=== PATIENT | male | born 1990 | race Caucasian/White ===

== ENCOUNTER 2024-03-01 18:37 | Emergency (ER) | payer BC, SELFPAY ==
[2024-03-01 18:45] VITALS: PULSE 83; RESP 16; TEMP 36.4; O2SAT 98
[2024-03-01] MEDS: Lidocaine/Epinephri/Tetracaine Topical Gel 3 ML (19:00)
--- NOTE | 2024-03-01 19:08 | ED.GENADUL_ITS ---
Discharge Plan Disposition Patient Disposition: Home Condition: Good Discharge Details Clinical Impression: Laceration of scalp Primary Care Provider: Ghanshyam Perez ED Provider: Rhett Mendoza Home Meds and New Rx's Prescriptions: No Action No Known Home Meds Discharge Instructions Instructions: Stitches and jayme Additional Instructions: Please keep the area clean and dry. Please keep the area dry for the next 48 hours. Monitor closely for any redness, drainage or discharge. Absorbable sutures will come out on their own in 10 to 12 days. If they have not you can gently rub warm soapy water on the area to help them come off. If you come back to the emergency department here it will be free of charge for the suture removal. For long-term scar cosmesis, please make sure to avoid any sun to the area for the next year. Apply moisturizer or vitamin E to the area twice daily for the next 12 months for the best chance of wound/scar medication. Please take a daily multivitamin as well as this can help in wound healing. Referrals: Ghanshyam Perez MD [Primary Care Provider] - [facility] General Date/Time Provider Initiated Documentation: 03/01/24 18:54 . HPI Narrative: This is a pleasant 34-year-old male with no significant past medical history as tetanus was updated for the last 10 years who presents for laceration on scalp. Patient states that he was stacking wood when a large piece of wood fell and hit his head. Has a small laceration and bleeding. He came to the ER for further assessment. Aside from mild achiness where the wood hit he denies any problems otherwise. He denies any headache, vision changes, loss of consciousness or syncope. He denies any ear pain. No other trauma. No other complaints at this time. No other modifying factors. Related Data Home Medications Medication Instructions Recorded Confirmed Unknown [No Known Home Meds] 09/19/21 03/01/24 Allergies Allergy/AdvReac Type Severity Reaction Status Date / Time No Known Allergies Allergy Verified 09/24/22 10:25 General Stated Complaint: Laceration CARRINGTON: 4 Exam Narrative Exam Narrative: 1.Const: Well-nourished, Well-developed, appearing stated age 2.Eyes: PERRL, no conjunctival injection, and symmetrical lids. 3.ENT: Atraumatic external nose and ears. Moist MM. Neck: Symmetric, trachea midline, No thyromegaly. There is no evidence of raccoon eyes, figueroa sign, CSF rhinorrhea, mastoid tenderness, cranial crepitus, hemotympanum, exophthalmos, or hyphema. Patient demonstrates intact dentition with no signs of tooth avulsion or fracture, no signs of jaw deformity, no evidence of a LeFort's fracture, with an intact palate, nose and orbital region. There is no evidence of a nasal septal hematoma. No proptosis. Jaw closes symmetrically. Airway is clear. There is evidence of a small 2 cm laceration on the scalp. No active bleeding. No involvement in the subcutaneous structures or skull. Minimal hematoma in that area, no softness or bogginess to suggest skull fracture. No other evidence of trauma. 4.CVS: +S1/S2, No murmurs or gallops. Peripheral pulses 2+ and equal in all extremities. Brisk capillary refill in all extremities. 5.RESP: Unlabored respiratory effort. Clear to auscultation bilaterally. No wheezes rales or rhonchi 6.GI: Soft, Nontender/Nondistended, No hepatosplenomegaly. No guarding or antonio ound. 7.MSK: Normocephalic/Atraumatic, Extremities w/o deformity or ttp No cyanosis or clubbing, Normal movement of all extremities 8.Skin: Warm, Dry. No rashes or lesions. 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 Sensation grossly intact, no focal neurologic deficits. 10.Psych: (AAO) x3. Appropriate mood and affect Course Vital Signs Vital signs: Vital Signs Temperature 36.4 C L 03/01/24 18:45 Pulse 83 03/01/24 18:45 Respiratory Rate 16 03/01/24 18:45 Pulse Oximetry 98 03/01/24 18:45 Temperature 36.4 C L 03/01/24 18:45 Pulse 83 03/01/24 18:45 Respiratory Rate 16 03/01/24 18:45 Pulse Oximetry 98 03/01/24 18:45 Pain Level 1 03/01/24 18:45 Procedures Laceration Laceration 1: Site: scalp Side (If applicable): left Size (cm): 2 Description: linear Depth: simple, single layer Local anesthetic: Lidocaine 1% and with Epi Amount of anesthesia used (mL): 2 Pre-repair: wound explored, irrigated extensively and deep structures intact Skin layer closed with: other (Chromic Gut) Size (cm): 5-0 Number of sutures: 3 Technique: simple, interrupted Medical Decision Making This is a pleasant 34-year-old male with no significant past medical history as tetanus was updated for the last 10 years who presents for laceration on scalp. Patient states that he was stacking wood when a large piece of wood fell and hit his head. Has a small laceration and bleeding. He came to the ER for further assessment. Aside from mild achiness where the wood hit he denies any problems otherwise. He denies any headache, vision changes, loss of consciousness or syncope. He denies any ear pain. No other trauma. No other complaints at this time. No other modifying factors. Patient demonstrates a small 2 cm laceration to the scalp with what hit, small hematoma but no evidence of bony deformity to suggest skull fracture whatsoever. No deep involvement of the galea or skull. Patient appears clinically well otherwise. No other evidence of significant trauma or neurologic deficit to suggest acute intracranial etiology. The area was cleaned, anesthetized, washed out with chlorhexidine, and then sutured with 3 simple interrupted sutures using 5-0 Chromic Gut. Patient tolerated this well. Patient did specifically request absorbable sutures so that he would not have to immediately come back. No other evidence of foreign body or other abnormality at this time. Patient will be discharged home. Discussed red flags which return. I have extensively reviewed the treatment plan and discharge instructions with the patient. I have addressed all patient concerns at this time. The patient was made aware of what symptoms to monitor for that would warrant a return to the emergency department. Discussed the plan with the patient, they demonstrate verbal understanding and agreement with our assessment and plan at this time. The documentation in this chart was dictated using [employer] dictation software. Please excuse any dictation errors. Quality:SDOH Health Related Social Needs: No Data to Display PFSH All Active Problems Laceration of scalp (Acute) Callus of foot (Acute) Erectile dysfunction (Acute) Family History Mother No problems noted. Father No problems noted. 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 Pets and animals: Yes Pets and animals: dog(s) Sexually active: Yes Do you think of yourself as: straight/heterosexual Current gender identity: male What is your relationship status?: living with partner How often do you talk on the phone with friends or family?: three or more times per week How often do you get together with friends or relatives?: once per week How often do you attend yarsani or worship services?: decline to answer Do you belong to any clubs or organized social groups?: yes Panel score (0-1 are the most socially isolated patients): 3 What type of physical activity do you participate in: walking and running Duration: 45-60 minutes/day Frequency: daily Bela/Protestant: None Special bela needs: No Seatbelt use: always Helmet use: Yes Helmet use: always Drive intox or ride w/intox local bulk driver: No
== END 2024-03-01 19:14 | disposition home or self-care (01) ==
LOC: ER 19:18
PROVIDERS: Emergency Provider Student in an Organized Health Care Education/Training Program; PCP Family Medicine
DX: S01.01XA Laceration without foreign body of scalp, initial encounter (principal); W20.8XXA Other cause of strike by thrown, projected or falling object, initial encounter; Y93.89 Activity, other specified; Y92.017 Garden or yard in single-family (private) house as the place of occurrence of the external cause
CPT/HCPCS: 12001; 99283

== ENCOUNTER 2025-07-24 21:31 | Emergency (ER) | payer BC, SELFPAY ==
[2025-07-24 21:40] VITALS: BP 138/93; PULSE 83; RESP 12; TEMP 36.7; O2SAT 97
[2025-07-24] MEDS: Lidocaine 1% Multi-Dose W/EPI 1/100,000 50 ML VIAL (22:19)
--- NOTE | 2025-07-24 22:19 | ED.GENADUL_ITS ---
Discharge Plan Disposition Patient Disposition: Home Condition: Good Discharge Details Clinical Impression: Laceration of hand, right Primary Care Provider: Ghanshyam Perez ED Provider: Rhett Mendoza Home Meds and New Rx's Prescriptions: No Action No Known Home Meds Discharge Instructions Instructions: Laceration Repair With Stitches ED Additional Instructions: Please keep the area clean and dry. Monitor closely for any redness, drainage or discharge. For nonabsorbable sutures, please return in 7 to 10 days to have the wound reassessed and the sutures removed. If you come back to the emergency department here it will be free of charge for the suture removal. For long-term scar cosmesis, please make sure to avoid any sun to the area for the next year. Apply moisturizer or vitamin E to the area twice daily for the next 12 months for the best chance of wound/scar medication. Please take a daily multivitamin as well as this can help in wound healing. If you notice any worsening of your symptoms, or any new symptoms such as vomiting, diarrhea, fever, chills, shortness of breath, chest pain, numbness, weakness, or fainting , please return immediately to the emergency department for reevaluation. Please follow up with your primary care provider as soon as possible for reassessment and reevaluation. As always, it was a pleasure participating in your medical care today. Stand Alone Forms: Portal Information Referrals: Ghanshyam Perez MD [Primary Care Provider, Medicine] [facility] General Date/Time Provider Initiated Documentation: 07/24/25 21:44 . HPI Narrative: This is a pleasant 35-year-old male with no significant past medical history who states that his tetanus is updated last year, presents today for laceration of his right dominant hand over the thenar eminence. Patient was working and his hand slipped and caught a sharp piece of wood, and sliced the right lateral aspect near his thenar eminence. He had bleeding, he covered it and came into the ER for further assessment. He denies any new numbness or tingling or weakness. There were no splinters that he had to remove. No other complaints at this time. No other modifying factors. Related Data Home Medications ?Medication ?Instructions ?Recorded ?Confirmed Unknown [No Known Home Meds] 09/19/21 1 09/24/24 Allergies Allergy/AdvReac Type Severity Reaction Status Date / Time No Known Allergies Allergy Verified 07/24/25 21:44 General Stated Complaint: Laceration CARRINGTON: 4 Exam Narrative Exam Narrative: 1.Const: Well-nourished, Well-developed, appearing stated age 2.Eyes: PERRL, no conjunctival injection, and symmetrical lids. 3.ENT: Atraumatic external nose and ears. Moist MM. Neck: Symmetric, trachea midline, No thyromegaly. 4.CVS: +S1/S2, Peripheral pulses 2+ and equal in all extremities. Brisk capillary refill in all extremities. 5.RESP: Unlabored respiratory effort. Clear to auscultation bilaterally. No wheezes rales or rhonchi 6.GI: Soft, Nontender/Nondistended, No hepatosplenomegaly. No guarding or rebound. 7.MSK: Right hand demonstrates symmetrically palpable radial and ulnar pulses. Capillary refill less than 2 seconds to all digits. Intact sensation to light touch of the radial, median and ulnar nerves demonstrated by testing in the dorsal web space of the thumb, the distal palmar aspect of the index finger, and the lateral surface of the fifth finger. 2 point discrimination intact to 5mm of discrimination in the affected digit. Intact motor function of the radial, median and ulnar nerves demonstrated by strength of extension of the isolated distal joint of the index finger, hand leading firefighter, and spreading of the 2nd through 5th digits. Intact recurrent median nerve as demonstrated by ability to move thumb fully through opposition, abduction and flexion. No snuffbox tenderness. 8.Skin: 2 cm V shaped laceration present over the lateral aspect of the thenar eminence, no active bleeding. No evidence of deep tissue involvement. No evidence of tendon damage. 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 Sensation grossly intact, no focal neurologic deficits. 10.Psych: (AAO) x3. Appropriate mood and affect Course Vital Signs Vital signs: Vital Signs Temperature 36.7 C 07/24/25 21:40 Pulse 83 07/24/25 21:40 Respiratory Rate 12 07/24/25 21:40 Blood Pressure 138/93 H 07/24/25 21:40 Pulse Oximetry 97 07/24/25 21:40 Temperature 36.7 C 07/24/25 21:40 Temperature Source Oral 07/24/25 21:40 Pulse 83 07/24/25 21:40 Respiratory Rate 12 07/24/25 21:40 Blood Pressure 138/93 H 07/24/25 21:40 Pulse Oximetry 97 07/24/25 21:40 Pain Level 0 07/24/25 21:40 Procedure Laceration Laceration 1: Date of Procedure: 07/24/25 Time of procedure: 22:24 Provider that performed the procedure: Rhett Mendoza Standard Time Out Performed: No Patient Consented: Verbally Site: hand Side (If applicable): right Description: linear Depth: simple, single layer Local anesthetic: Lidocaine 1% and with Epi Amount of anesthesia used (mL): 4 Pre-repair:: wound explored, irrigated extensively and deep structures intact Skin layer closed with: nylon Suture size: 4-0 Number of sutures:: 3 Technique: simple, interrupted Medical Decision Making This is a pleasant 35-year-old male with no significant past medical history who states that his tetanus is updated last year, presents today for laceration of his right dominant hand over the thenar eminence. Patient was working and his hand slipped and caught a sharp piece of wood, and sliced the right lateral aspect near his thenar eminence. He had bleeding, he covered it and came into the ER for further assessment. He denies any new numbness or tingling or weakness. There were no splinters that he had to remove. No other complaints at this time. No other modifying factors. Exam demonstrates a 2 cm V-shaped laceration over the thenar eminence on the right hand, no tendon involvement, no neurovascular deficits. Patient was anesthetized, sutured with 3 simple interrupted 4-0 Ethilon sutures. He tolerated this well. Discussed red flags for which to return. I have extensively reviewed the treatment plan and discharge instructions with the patient. I have addressed all patient concerns at this time. The patient was made aware of what symptoms to monitor for that would warrant a return to the emergency department. Discussed the plan with the patient, they demonstrate verbal understanding and agreement with our assessment and plan at this time. The documentation in this chart was dictated using [employer] dictation software. Please excuse any dictation errors. PFSH All Active Problems (Updated 07/24/25 @ 22:21 by Rhett Mendoza DO) Laceration of hand, right (Acute) Callus of foot (Acute) Erectile dysfunction (Acute) Family History Mother No problems noted. Father No problems noted. Social History (Updated 05/04/25 @ 13:50 by Donna Ibarra) Smoking/Tobacco Use Status: Never Second Hand Exposure: No Smoking risk assessment performed?: Yes Alcohol Intake: current Alcohol Intake frequency: a few times a week Alcohol type: beer Drug use: Never Substance use type: does not use Counseling given: No Counseling provided: none Adopted: No Caregiver/Support person: No Foster care: No Household members: spouse Housing: house Number of Children: 0 number of grandchildren: 0 Communication Needs: None Education Level: college Details: 2 year college Do you need help understanding health information?: Rarely 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 Pets and animals: Yes Pets and animals: dog(s) Sexually active: Yes Do you think of yourself as: straight/heterosexual Current gender identity: male What is your relationship status?: How often do you talk on the phone with friends or family?: three or more times per week How often do you get together with friends or relatives?: once per week How often do you attend worship or buddhism services?: decline to answer Do you belong to any clubs or organized social groups?: decline to answer Panel score (0-1 are the most socially isolated patients): 2 What type of physical activity do you participate in: walking and other Details: Hiking Duration: 45-60 minutes/day Frequency: daily Bela/Cheondoism: None Special bela needs: No Seatbelt use: always Helmet use: Yes Helmet use: always Drive intox or ride w/intox industrial truck driver: No Firearms in home: Yes Firearms unloaded and locked: Yes Do you feel safe at home: Yes Do you feel safe in your relationship?: Yes Victim of physical abuse: No Victim of emotional abuse: No Victim of sexual abuse: No Would you like helpful sources: No PAWSS Have you Been Recently Intoxicated or Drunk Within the Last 30 days?: No Have you Ever Experienced Previous Episodes of Alcohol Withdrawal?: No Have you ever Experienced Withdrawal Seizures?: No Have you ever Experienced Delirium Tremens(DT)s?: No Have you ever undergone Alcohol Rehabilitation Treatment (i.e, inpt ot outpatient treatment programs)?: No Have you ever Experienced Blackouts?: No Have you ever Combined Alcohol with other Downers within the last 90 days?: No Have you ever Combined Alcohol with any other Substance of Abuse during the last 90 days?: No Positive Blood Alcohol level on Presentation? [PCS.BAL]: No Evidence of Increased Autonomic Activity (i.e. HR>120, tremor, sweating, agitation, nausea)?: No Result: 0
[2025-07-24 22:28] VITALS: RESP 16
== END 2025-07-24 22:29 | disposition home or self-care (01) ==
PROVIDERS: Emergency Provider Student in an Organized Health Care Education/Training Program; PCP Family Medicine
DX: S61.411A Laceration without foreign body of right hand, initial encounter (principal); W26.8XXA Contact with other sharp object(s), not elsewhere classified, initial encounter
CPT/HCPCS: 12001; J2004

== ENCOUNTER 2025-08-03 16:42 | Emergency (ER) | payer BC, SELFPAY ==
[2025-08-03 16:43] VITALS: BP 125/83; PULSE 67; RESP 12; TEMP 36.2; O2SAT 97
--- NOTE | 2025-08-03 22:53 | ED.GENADUL_ITS ---
Discharge Plan Discharge Details Chief Complaint: SutureRem Primary Care Provider: Ghanshyam Perez ED Provider: Delphine Reis Home Meds and New Rx's Prescriptions: No Action No Known Home Meds Discharge Data Discharge Date/Time-TO BE ENTERED AT DEPARTURE: 08/03/25 17:21 HPI General Date/Time Provider Initiated Documentation: 08/03/25 16:57 . HPI Narrative: This 35-year-old male presents for suture removal laceration of right hand. Spent 10 days since the sutures were placed states he has some slight redness around the area. He states he banged it 3 days prior to arrival. Denies any fever or chills. He denies any pain overlying the area. Related Data Home Medications ?Medication ?Instructions ?Recorded ?Confirmed Unknown [No Known Home Meds] 09/19/21 1 10/04/24 Allergies Allergy/AdvReac Type Severity Reaction Status Date / Time No Known Allergies Allergy Verified 08/03/25 16:46 General Stated Complaint: SutureRem CARRINGTON: 4 Exam Narrative Exam Narrative: 3 sutures to base of right, some mild erythema surrounding site, no crepitus, no drainage no significant dehiscence Course Vital Signs Vital signs: Vital Signs Temperature 36.2 C L 08/03/25 16:43 Pulse 67 08/03/25 16:43 Respiratory Rate 12 08/03/25 16:43 Blood Pressure 125/83 08/03/25 16:43 Pulse Oximetry 97 08/03/25 16:43 Temperature 36.2 C L 08/03/25 16:43 Temperature Source Oral 08/03/25 16:43 Pulse 67 08/03/25 16:43 Respiratory Rate 12 08/03/25 16:43 Blood Pressure 125/83 08/03/25 16:43 Blood Pressure Position Sitting 08/03/25 16:43 Pulse Oximetry 97 08/03/25 16:43 Oxygen Delivery Method Room Air 08/03/25 16:43 Oxygen Flow Rate 0 08/03/25 16:43 Pain Level 0 08/03/25 16:43 Medical Decision Making 3 sutures removed by me, the wound is still slightly delayed healing. The wound did not dehisced, there is a small area that was not completely closed. I did apply Steri-Strips over this and encourage patient to leave on for several more days. He will try to keep this area dry. I do not see an obvious area of infection although patient is encouraged to apply bacitracin once a day as needed carefully so as not to place on Steri-Strips. He may trim the Steri- Strips as Seybert. He is encouraged to return should he develop fever, chills, spreading redness or should any new concerns arise. PFSH All Active Problems (Updated 07/24/25 @ 22:21 by Rhett Mendoza DO) Laceration of hand, right (Acute) Callus of foot (Acute) Erectile dysfunction (Acute) Family History Mother No problems noted. Father No problems noted. Social History (Updated 05/04/25 @ 13:50 by Donna Ibarra) Smoking/Tobacco Use Status: Never Second Hand Exposure: No Smoking risk assessment performed?: Yes Alcohol Intake: current Alcohol Intake frequency: a few times a week Alcohol type: beer Drug use: Never Substance use type: does not use Counseling given: No Counseling provided: none Adopted: No Caregiver/Support person: No Foster care: No Household members: spouse Housing: house Number of Children: 0 number of grandchildren: 0 Communication Needs: None Education Level: college Details: 2 year college Do you need help understanding health information?: Rarely 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 Pets and animals: Yes Pets and animals: dog(s) Sexually active: Yes Do you think of yourself as: straight/heterosexual Current gender identity: male What is your relationship status?: How often do you talk on the phone with friends or family?: three or more times per week How often do you get together with friends or relatives?: once per week How often do you attend judaism or judaism services?: decline to answer Do you belong to any clubs or organized social groups?: decline to answer Panel score (0-1 are the most socially isolated patients): 2 What type of physical activity do you participate in: walking and other Details: Hiking Duration: 45-60 minutes/day Frequency: daily Bela/Hindu: None Special bela needs: No Seatbelt use: always Helmet use: Yes Helmet use: always Drive intox or ride w/intox class c truck driver: No Firearms in home: Yes Firearms unloaded and locked: Yes Do you feel safe at home: Yes Do you feel safe in your relationship?: Yes Victim of physical abuse: No Victim of emotional abuse: No Victim of sexual abuse: No Would you like helpful sources: No
== END 2025-08-03 17:21 | disposition home or self-care (01) ==
PROVIDERS: Emergency Provider Physician Assistant; PCP Family Medicine
DX: Z48.02 Encounter for removal of sutures (principal)